=== PATIENT | female | born 1960 | race African-American/Black ===

== ENCOUNTER 2020-07-17 16:01 | Emergency (ER) | payer MEDICAID ==
[~2020-07-17] VITALS: Ht 167.6 cm; Wt 79.4 kg
--- NOTE | 2020-07-17 16:57 | NUR ---
BIBSELF C/O LEFT KNEE PAIN S/P TRIP AND FALL ON June, TO ER BED 11, HOOKED TO MONITOR, CHANGED TO HOSP GOWN, WARM BLANKET PROVIDED PATIENT AAO x 4, BREATHING EVEN AND UNLABORED. AWAITING MD SEAY
--- NOTE | 2020-07-17 17:10 | NUR ---
ASHER SEGURA AT BEDSIDE FOR EVAL
[2020-07-17] MEDS ORDERED: KETOROLAC TROMETHAMINE INJ 30 MG/ML VIAL ONE (17:26)
[2020-07-17] MEDS: KETOROLAC TROMETHAMINE INJ 30 MG/ML VIAL IM ONE (17:31)
--- NOTE | 2020-07-17 17:36 | NUR ---
DIRECTOR OF INDIVIDUAL GIVING AT BEDSIDE FOR XRAY
[2020-07-17 18:29] VITALS: BP 130/88
--- NOTE | 2020-07-17 18:29 | NUR ---
Patient discharged to home in stable condition. Written and verbal after care instructions given. Patient verbalizes understanding of instruction.
== END 2020-07-17 18:29 | disposition home or self-care (01) ==
LOC: ER 16:04
DX: M17.12 Unilateral primary osteoarthritis, left knee (principal); I10 Essential (primary) hypertension; J45.909 Unspecified asthma, uncomplicated; Z60.2 Problems related to living alone
CPT/HCPCS: 73552; 73564; 96372; 99284; J1885

== ENCOUNTER 2020-10-25 11:23 | Emergency (ER) | payer OTHER ==
[~2020-10-25] VITALS: Ht 165.1 cm; Wt 73.5 kg
--- NOTE | 2020-10-25 11:28 | NUR ---
came in for c/o right leg pain, numbness, tingling, and cold toe x 3 days,09/05 ps, to ER bed 9, hooked to BP cuff and POX, changed to hosp gown, warm blanket provided, patient AAO x 4, breathing even and unlabored, NAD noted. awaiting MD coleman.
--- NOTE | 2020-10-25 11:34 | NUR ---
DR OSORIO AT BEDSIDE FOR EVAL.
--- NOTE | 2020-10-25 11:57 | NUR ---
DEBBIE UMANZOR AT BEDSIDE
[2020-10-25] MEDS ORDERED: KETOROLAC TROMETHAMINE INJ 30 MG/ML VIAL IV ONE (12:00)
[2020-10-25] MEDS ORDERED: KETOROLAC TROMETHAMINE 15 MG/ML VIAL ONE (12:01)
[2020-10-25 12:02] LABS: BASOPHILS % (AUTO) 0.4 % (0.0-2.0); EOSINOPHILS % (AUTO) 4.6 % (0.0-6.0); HEMATOCRIT 35 % (33-45); HEMOGLOBIN 11.4 g/dL (11.5-14.8); LYMPHOCYTES # (AUTO) 1.7 /CMM (0.8-4.8); LYMPHOCYTES % (AUTO) 31.6 % (20.0-44.0); MEAN CORPUSCULAR HGB CONC 33 g/dl (31.0-36.0); MEAN CORPUSCULAR VOLUME 91 fL (82-100); MONOCYTES # (AUTO) 0.4 /CMM (0.1-1.30); MONOCYTES % (AUTO) 7.4 % (2.0-12.0); PLATELET COUNT (AUTO) 231 /CMM (150-450); RED BLOOD CELL COUNT(AUTO) 3.82 MIL/uL (4.0-5.2); WHITE BLOOD COUNT (AUTO) 5.4 K/uL (4.3-11.0)
[2020-10-25 12:31] LABS: CALCIUM, SERUM 8.7 mg/dL (8.5-10.1); CARBON DIOXIDE 27 mmol/L (21-32); CHLORIDE 107 mmol/L (98-107); CREATININE 0.8 mg/dL (0.6-1.3); GLUCOSE 99 mg/dL (74-106); POTASSIUM 3.6 mmol/L (3.5-5.1); SODIUM SERUM 144 mmol/L (136-145); UREA NITROGEN, BLOOD 18 mg/dL (7-18)
[2020-10-25 13:28] VITALS: BP 142/66
--- NOTE | 2020-10-25 13:28 | NUR ---
IV removed. Catheter intact and site benign. Pressure and 4x4 applied to site. No bleeding noted.Patient discharged to home in stable condition. Written and verbal after care instructions given. Patient verbalizes understanding of instruction.
== END 2020-10-25 13:34 | disposition home or self-care (01) ==
LOC: ER 11:26
DX: M79.661 Pain in right lower leg (principal); G62.9 Polyneuropathy, unspecified; I10 Essential (primary) hypertension; J45.909 Unspecified asthma, uncomplicated; Z60.2 Problems related to living alone
CPT/HCPCS: 36415; 71045; 80048; 84484; 85025; 93005 ×2; 93971; 96374; 99285; J1885

== ENCOUNTER 2020-11-08 09:38 | Emergency (ER) | payer OTHER ==
[~2020-11-08] VITALS: Ht 165.1 cm; Wt 73.5 kg
--- NOTE | 2020-11-08 09:58 | NUR ---
BIB SELF C/O RT KNEE PAIN 09/05, NON TRAUMATIC. VS CHECKED. AWAITING MD SEAY
[2020-11-08] MEDS ORDERED: KETOROLAC TROMETHAMINE INJ 30 MG/ML VIAL ONE (11:29)
[2020-11-08] MEDS ORDERED: KETOROLAC TROMETHAMINE INJ 60 MG/2 ML VIAL IM ONE (11:30)
--- NOTE | 2020-11-08 11:41 | NUR ---
Patient discharged to home in stable condition. Written and verbal after care instructions given. Patient verbalizes understanding of instruction.
[2020-11-08 11:42] VITALS: BP 138/80
== END 2020-11-08 11:42 | disposition home or self-care (01) ==
LOC: ER 09:41
DX: M17.11 Unilateral primary osteoarthritis, right knee (principal); I10 Essential (primary) hypertension; J45.909 Unspecified asthma, uncomplicated; Z60.2 Problems related to living alone
CPT/HCPCS: 73564; 96372; 99283; J1885

== ENCOUNTER 2022-04-22 16:03 | Emergency (ER) | payer OTHER ==
[~2022-04-22] VITALS: Ht 165.1 cm; Wt 73.5 kg
--- NOTE | 2022-04-22 16:50 | NUR ---
BIBS C/O BI KNEE PAIN AND BURNING PAIN X7DAYS, NO TRAUMA/FALL. PLACED COMFORTABLY IN BED 12. VITALS CHECKED.
[2022-04-22] MEDS ORDERED: IBUPROFEN 400 MG TABLET PO ONE (17:00)
[2022-04-22] MEDS ORDERED: KETOROLAC TROMETHAMINE INJ 30 MG/ML VIAL ONE (17:17)
--- NOTE | 2022-04-22 17:22 | NUR ---
IM PAIN MEDS GIVEN
[2022-04-22] MEDS: KETOROLAC TROMETHAMINE INJ 60 MG/2 ML VIAL IM ONE (17:23)
[2022-04-22] MEDS ORDERED: NAPR-1164 PO (18:19)
[2022-04-22 18:37] VITALS: BP 126/76
--- NOTE | 2022-04-22 18:37 | NUR ---
Patient discharged to home in stable condition. Written and verbal after care instructions given. Patient verbalizes understanding of instruction.
== END 2022-04-22 18:38 | disposition home or self-care (01) ==
LOC: ER 16:06
DX: M25.562 Pain in left knee (principal); M17.12 Unilateral primary osteoarthritis, left knee; I10 Essential (primary) hypertension; J45.909 Unspecified asthma, uncomplicated; Z88.8 Allergy status to other drugs, medicaments and biological substances; Z60.2 Problems related to living alone; Z79.1 Long term (current) use of non-steroidal anti-inflammatories (NSAID)
CPT/HCPCS: 73564; 96372; 99283; J1885